=== PATIENT | female | born 1960 ===

== ENCOUNTER 2023-10-09 09:54 | Day surgery (SDC) | payer MEDICARE, OTHER ==
[2023-10-09] MEDS: Phenylephrine 2.5% Ophth Soln 2 ML Bot EYELF SCH (10:01)
[2023-10-09] MEDS: Pilocarpine 4% Ophth Soln 15 ML Bot EYELF SCH (10:01)
[2023-10-09] MEDS: Lidocaine 1% PF 2 ML SDV INJECT SCH (10:01)
[2023-10-09] MEDS: Cefuroxime 10 MG/ML SYRINGE EYELF SCH (10:01)
[2023-10-09] MEDS: Tetracaine HCl/PF 0.5% 4 ML Bottle EYEBOTH SCH (10:01)
[2023-10-09] MEDS: Polymyxin B/Trimethoprim 10 ML Bottle EYELF SCH (10:23)
[2023-10-09] MEDS: Brimonidine 0.2% Ophth Soln 5 ML Bottle EYELF SCH (10:27)
[2023-10-09] MEDS: Tropicamide 1% Ophth Soln 3 ML Bottle EYELF SCH (10:33)
== END 2023-10-09 11:59 | disposition home or self-care (01) ==
LOC: JD.SDS 09:54
PROVIDERS: ATTEND Ophthalmology
DX: H25.813 Combined forms of age-related cataract, bilateral (principal); H40.013 Open angle with borderline findings, low risk, bilateral; H16.103 Unspecified superficial keratitis, bilateral; H16.223 Keratoconjunctivitis sicca, not specified as Sjogren's, bilateral; H18.413 Arcus senilis, bilateral; F17.210 Nicotine dependence, cigarettes, uncomplicated
CPT/HCPCS: 66984; A9270; J0697; J3490

== ENCOUNTER 2023-11-13 13:47 | Day surgery (SDC) | payer MEDICARE, OTHER ==
[2023-11-13] MEDS: Polymyxin B/Trimethoprim 10 ML Bottle EYERT SCH (15:17)
[2023-11-13] MEDS: Brimonidine 0.2% Ophth Soln 5 ML Bottle EYERT SCH (15:19)
[2023-11-13] MEDS: Phenylephrine 2.5% Ophth Soln 2 ML Bot EYERT SCH (15:21)
[2023-11-13] MEDS: Tropicamide 1% Ophth Soln 3 ML Bottle EYERT SCH (15:23)
[2023-11-13] MEDS: Tetracaine HCl/PF 0.5% 4 ML Bottle EYEBOTH SCH (15:49)
[2023-11-13] MEDS: Lidocaine 1% PF 2 ML SDV INJECT SCH (16:06)
[2023-11-13] MEDS: Cefuroxime 10 MG/ML SYRINGE EYERT SCH (16:15)
[2023-11-13] MEDS: Pilocarpine 4% Ophth Soln 15 ML Bot EYERT SCH (16:17)
== END 2023-11-13 16:25 | disposition home or self-care (01) ==
LOC: JD.SDS 13:47
PROVIDERS: ATTEND Ophthalmology
DX: H25.811 Combined forms of age-related cataract, right eye (principal); F17.210 Nicotine dependence, cigarettes, uncomplicated; Z88.5 Allergy status to narcotic agent
CPT/HCPCS: 66984; A9270; J0697; J3490